=== PATIENT | female | born 1965 | race Caucasian/White ===

== ENCOUNTER 2017-12-01 14:18 | Observation (INO) | payer BC, OTHER ==
[2017-12-01] MEDS ORDERED: NS 1,000 ML IV ONE ×2 (14:49→16:47)
[2017-12-01] MEDS ORDERED: ONDANSETRON 4 MG/2 ML VIAL IVP ONE ×2 (14:49→19:00)
[2017-12-01 15:29] LABS: PLATELET COUNT 137 10^3/uL (150-400)
--- NOTE | 2017-12-01 15:34 | EDPHY ---
H & P Time Seen by Provider: 12/01/17 14:54 HPI/ROS: CHIEF COMPLAINT: Shakiness HISTORY OF PRESENT ILLNESS: Patient presents with shakiness and overall body tremor onset this morning. Started gradually just involving the upper extremities and then throughout the morning became worse. She did get an ultrasound today and after that ultrasound noticed shakiness to be more severe. She called her primary care physician who told her to go to an urgent care or emergency department. Patient with complex recent past medical history including"elevated erythrocytes"over the last 3-6 months. Also with elevated LFTs noticed on routine lab screening in July. Apparently she saw her primary care physician yesterday and was felt to have hepatomegaly and that, along with elevated LFT's, is what prompted the ultrasound today. In addition to these lab abnormalities she has been losing weight with a 20 lb weight loss over the last 3 months. She has had decreased appetite over the same period of time. Occasional nausea and vomiting but not persistent and not always associated with eating. Also she describes poor sleep and needing daytime naps. Also has"coated tongue" over same few months time. With this dizziness today she describes it as more like unsteadiness but does seem to be worse with change of positions. She also describes being thirsty and says that she needed help getting up as she felt"legs will not hold me". Patient denies chest pain, shortness of breath, cough, recent illnesses. No dysuria, diarrhea. No rash. No vision changes. No headache. She takes a natural thyroid replacement and says she has had no changes to that medication recently. Patient denies recent travel, toxic exposures, has a cat. REVIEW OF SYSTEMS: Constitutional: No fever, no chills. Eyes: No discharge. ENT: No sore throat. Cardiovascular: No chest pain, no palpitations. Respiratory: No cough, no shortness of breath. Gastrointestinal: No abdominal pain, some vomiting. Genitourinary: No dysuria. Musculoskeletal: No back pain. Skin: No rashes. Neurological: No headache. A no weakness, no numbness. General Appearance: Alert, no distress. Eyes: Pupils equal and round no pallor or injection. ENT, Mouth: Mucous membranes dry, coated tongue, poor dentition. Respiratory: There are no retractions, lungs are clear to auscultation. Cardiovascular: Regular rate and rhythm. Gastrointestinal: Abdomen is soft and nontender, no masses, bowel sounds normal. Neurological: Normal cranial nerves, normal strength, normal sensation, brisk reflexes but no clonus. All over tremor which is significant and it seems that patient unable to quench the affect even with effort. No tongue fasiculations. Skin: Warm and dry, no rashes. Musculoskeletal: Neck is supple nontender. Extremities are symmetrical, full range of motion, no edema. Thin with loss of muscle mass. Psychiatric: Patient is oriented X 3, there is no agitation. Medical/surgical history: Hypothyroid. Surgeries include appendectomy, ganglion cyst removal, liposuction. Social history: Patient is a smoker, born in [place] living in the [facility] since [facility]. Living in [place] over the last 9 years. 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 Occasional alcohol. Used to drink more but only occasional over the last 1 year. Smoking Status: Current every day smoker Constitutional: Initial Vital Signs Temperature (C) 36.9 C 12/01/17 14:23 Heart Rate 91 12/01/17 14:23 Respiratory Rate 18 12/01/17 14:23 Blood Pressure 159/101 H 12/01/17 14:23 O2 Sat (%) 85 L 12/01/17 14:23 O2 Delivery Mode Nasal Cannula O2 (L/minute) 4 Allergies/Adverse Reactions: Penicillins Allergy (Verified 12/01/17 14:29) Pt reports anaphylaxis Sulfa (Sulfonamide Antibiotics) Allergy (Verified 12/01/17 14:29) pt reports rash MONASTAT Allergy (Uncoded 12/01/17 14:29) Pt reports rash Home Medications: Medication Instructions Recorded Nature Thyroid 12/01/17 Medical Decision Making - Diagnostics Imaging Results: Imaging Impressions Head CT 12/01/17 15:23 Impression: 1. No acute intracranial findings. If symptoms persist and clinical suspicion warrants, consider MRI. 2. Mild diffuse cerebral atrophy. Findings discussed with Nadine Moscoso MD 12/01/2017 at 16:25. Chest X-Ray 12/01/17 15:25 Impression: Prominence of perihilar interstitial markings and peribronchial cuffing. Findings are nonspecific but can be seen with bronchitis, reactive airway disease, or viral process. Chest x-ray with no acute findings, likely some COPD. Imaging: I viewed and interpreted images myself ED Course/Re-evaluation: EKG shows normal sinus rhythm with some baseline artifact. Normal intervals, axis. T-wave inversions in anterior leads. No ST elevation or depression to suggest ischemia or infarct. Impression abnormal, nonspecific EKG. CT scan of head, volume loss, no acute. Discussed with radiologist. 16:55 I had conversation with Dr. Dave, patient's primary care physician. She was able to fax over ultrasound report as well as labs drawn yesterday. These will be sent with patient to [facility]. 17:[address] Melo for admission. DDimer added to labs. 18:00 D-dimer elevated, called , will order CT PE as well as CT abdomen and pelvis with IV and p.o. Contrast. Plan is to perform those studies here if patient has not gotten a bed at [facility]. If transferred to [facility] prior to CT scan it will be performed at [facility]. 7:[address] scan here, [facility] in the ED and will transport directly after CT scan. I will call CT results to hospitalist. Differential Diagnosis: Differential diagnosis includes but is not limited to hepatocellular carcinoma, essential tremor, hepatitis, COPD, pulmonary embolism, dehydration. After evaluation in the emergency department patient with liver masses identified on ultrasound performed at outside facility this morning. Transaminases continue to be elevated as well as hemoglobin and hematocrit. Today patient presents with hypoxia which is easily reversed with nasal cannula. Does have history of using albuterol although discontinued it recently. Will add D-dimer to evaluate for pulmonary embolism per Dr. Melo's request. Patient will be admitted to [facility] for further evaluation. Stable for transfer by ambulance. EMTALA form completed. - Data Points Laboratory Results: Laboratory Results 12/01/17 14:45 12/01/17 14:45 12/01/17 12/01/17 12/01/17 15:45 14:45 14:45 WBC RBC Hgb Hct MCV MCH MCHC RDW Plt Count MPV Neut % (Auto) Lymph % (Auto) [place] % (Auto) Eos % (Auto) Baso % (Auto) Nucleat RBC Rel Count Absolute Neuts (auto) Absolute Lymphs (auto) Absolute Monos (auto) Absolute Eos (auto) Absolute Basos (auto) Absolute Nucleated RBC Immature Gran % Immature Gran # D-Dimer 1.66 ug/mLFEU H ug/mLFEU (0.00-0.50) Sodium 139 mEq/L mEq/L (135-145) Potassium 3.6 mEq/L mEq/L (3.3-5.0) Chloride 96 mEq/L L mEq/L (97-110) Carbon Dioxide 26 mEq/l mEq/l (22-31) Anion Gap 17 mEq/L H mEq/L (8-16) BUN 9 mg/dL mg/dL (7-23) Creatinine 0.5 mg/dL L mg/dL (0.6-1.0) Estimated GFR > 60 Glucose 115 mg/dL H mg/dL (70-100) Calcium 10.0 mg/dL mg/dL (8.5-10.4) Magnesium 1.5 mg/dL L mg/dL (1.6-2.3) Total Bilirubin 1.4 mg/dL mg/dL (0.1-1.4) AST 417 IU/L H IU/L (14-46) ALT 143 IU/L H IU/L (9-52) Alkaline Phosphatase 214 IU/L H IU/L (38-126) Total Protein 7.4 g/dL g/dL (6.3-8.2) Albumin 4.0 g/dL g/dL (3.5-5.0) TSH 2.740 uIU/mL uIU/mL (0.465-4.680) Urine Color YELLOW Urine Appearance HAZY Urine pH 5.5 (5.0-7.5) Ur Specific Kelly >= 1.030 (1.002-1.030) Urine Protein 1+ H (NEGATIVE) Urine Ketones 1+ H (NEGATIVE) Urine Blood 1+ H (NEGATIVE) Urine Nitrate NEGATIVE (NEGATIVE) Urine Bilirubin NEGATIVE (NEGATIVE) Urine Urobilinogen 1.0 EU EU (0.2-1.0) Ur Leukocyte Esterase NEGATIVE (NEGATIVE) Urine RBC 1-3 /hpf /hpf (0-3) Urine WBC 1-3 /hpf /hpf (0-3) Ur Epithelial Cells 3+ /lpf H /lpf (NONE-1+) Urine Bacteria 1+ /hpf H /hpf (NONE SEEN) Urine Mucus 2+ /lpf H /lpf (NONE-1+) Urine Glucose NEGATIVE (NEGATIVE) 12/01/17 14:45 WBC 5.57 10^3/uL 10^3/uL (3.80-9.50) RBC 4.77 10^6/uL 10^6/uL (4.18-5.33) Hgb 17.0 g/dL H g/dL (12.6-16.3) Hct 48.1 % H % (38.0-47.0) MCV 100.8 fL H fL (81.5-99.8) MCH 35.6 pg H pg (27.9-34.1) MCHC 35.3 g/dL g/dL (32.4-36.7) RDW 12.2 % % (11.5-15.2) Plt Count 137 10^3/uL L 10^3/uL (150-400) MPV 10.1 fL fL (8.7-11.7) Neut % (Auto) 65.7 % % (39.3-74.2) Lymph % (Auto) 20.3 % % (15.0-45.0) [place]atham % (Auto) 11.3 % % (4.5-13.0) Eos % (Auto) 0.5 % L % (0.6-7.6) Baso % (Auto) 1.1 % % (0.3-1.7) Nucleat RBC Rel Count 0.0 % % (0.0-0.2) Absolute Neuts (auto) 3.66 10^3/uL 10^3/uL (1.70-6.50) Absolute Lymphs (auto) 1.13 10^3/uL 10^3/uL (1.00-3.00) Absolute Monos (auto) 0.63 10^3/uL 10^3/uL (0.30-0.80) Absolute Eos (auto) 0.03 10^3/uL 10^3/uL (0.03-0.40) Absolute Basos (auto) 0.06 10^3/uL 10^3/uL (0.02-0.10) Absolute Nucleated RBC 0.00 10^3/uL 10^3/uL (0-0.01) Immature Gran % 1.1 % % (0.0-1.1) Immature Gran # 0.06 10^3/uL 10^3/uL (0.00-0.10) D-Dimer Sodium Potassium Chloride Carbon Dioxide Anion Gap BUN Creatinine Estimated GFR Glucose Calcium Magnesium Total Bilirubin AST ALT Alkaline Phosphatase Total Protein Albumin TSH Urine Color Urine Appearance Urine pH Ur Specific Kelly Urine Protein Urine Ketones Urine Blood Urine Nitrate Urine Bilirubin Urine Urobilinogen Ur Leukocyte Esterase Urine RBC Urine WBC Ur Epithelial Cells Urine Bacteria Urine Mucus Urine Glucose Medications Given: Discontinued Medications Diatrizoate Meglum/Diatrizoate Sod (Gastroview 66-10 Soln) 30 ml PO EDNOW ONE Stop: 12/01/17 18:03 Last Admin: 12/01/17 18:05 Dose: 30 ml Sodium Chloride (Ns) 1,000 mls @ 0 mls/hr IV ONCE ONE PRN Reason: Wide Open Stop: 12/01/17 14:50 Last Admin: 12/01/17 14:52 Dose: 1,000 mls Sodium Chloride (Ns) 1,000 mls @ 0 mls/hr IV ONCE ONE PRN Reason: Wide Open Stop: 12/01/17 16:48 Last Admin: 12/01/17 16:30 Dose: 1,000 mls Ondansetron HCl (Zofran) 4 mg IVP EDNOW ONE Stop: 12/01/17 14:50 Last Admin: 12/01/17 14:52 Dose: 4 mg Ondansetron HCl (Zofran) 4 mg IVP ONCE ONE Stop: 12/01/17 19:01 Last Admin: 12/01/17 19:09 Dose: 4 mg Departure - Departure
[2017-12-01] MEDS ORDERED: GASTROVIEW 30 ML UNIT PO ONE (18:02)
[2017-12-01] MEDS ORDERED: IOPAMIDOL (ISOVUE 370) 100 ML BTL IV ONE (19:17)
[2017-12-01] MEDS ORDERED: PROTOCOL MAGNESIUM 1 DOSE IV PRN (21:25)
[2017-12-01] MEDS ORDERED: LORazepam 0.5 MG TAB PO PRN (21:32)
[2017-12-01] MEDS: AZITHROMYCIN 250 MG TAB PO SCH (21:59)
--- NOTE | 2017-12-01 22:26 | CPEKG ---
Heart Rate: 83 RR Interval: 723 P-R Interval: 160 QRSD Interval: 80 QT Interval: 420 QTC Interval: 494 P [place]: 82 QRS [place]: 52 T Wave [place]: -10 EKG Severity - ABNORMAL ECG - EKG Impression: SINUS RHYTHM EKG Impression: NONSPECIFIC T ABNORMALITIES, INFERIOR LEADS EKG Impression: BORDERLINE PROLONGED QT INTERVAL Electronically Signed By: Iván Sanders 04-Dec-2017 07:36:34
--- NOTE | 2017-12-01 22:54 | GHP ---
[f rep st] HISTORY AND PHYSICAL DATE OF ADMISSION: 12/01/2017 CHIEF COMPLAINT: Tremor. HISTORY: The patient is a 52-year-old female, who came to the emergency room today for overall sever e body tremor that started this morning, although she has been declining for quite some time with a s pectrum of symptoms. She recently was found to have increased LFTs as an outpatient, and her primary care order a liver ultrasound that was read as liver masses and so she was also sent to the emergenc y room for further evaluation of this. We since have a CT scan, that has just discovered that these masses are actually benign cavernous hemangiomas and there is no malignancy. She has had a 20 pound unintentional weight loss over the last 3 months, due to decreased appetite. She says her tongue is coated with a white substance and her dentist told her it looks like she has oral thrush, although sh e was not treated. She is very dizzy, unsteady and weak. She denies any shortness of breath or ches t pain. She has a chronic dry cough, but no fever. She does describe night sweats. Her sleep patte rn has completely changed and now she is awake all night and asleep all day. She has never had a col onoscopy. PAST MEDICAL HISTORY: 1. Hypothyroidism. 2. Chronic respiratory failure, 88% on room air, but she was told by a physician she did not need ho me oxygen. 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 PAST SURGICAL HISTORY: 1. Appendectomy. 2. Ganglion cyst. MEDICATIONS: Please see computer record for full detailed list. ALLERGIES: To penicillin and sulfa. SOCIAL HISTORY: She is a smoker for the last 30 years. She is from [place], but has been in the [facility] since 1988. She denies any TB exposure. Her and her do not have any children, but they have a cat. 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 Her alcohol intake is only occasional, 1-2 ti mes per month. REVIEW OF SYSTEMS: Complete review of systems obtained. Review of systems negative for constitution al, HEENT, GI, pulmonary, vascular, , hematology, skin, muscular, endocrine, psych. Positives as i n HPI. FAMILY HISTORY: Reviewed, noncontributory to presenting complaint. PHYSICAL EXAMINATION: GENERAL: Well-developed, well-nourished female, in no acute distress. She se ems distraught and tremulous, a little frazzled. VITAL SIGNS: Temperature is 36.6, pulse 76, blood pressure 153/89, saturating 85% on room air, 91% on 4 L. EYES: Normal conjunctiva. Pupils round an d react light. ENT: Normal ears and nose. Hearing intact. Normal teeth. Oropharynx does have a c oating of white on the tongue, suspicious for oral thrush. NECK: Trachea midline. No thyromegaly. CHEST: Normal respiratory effort. LUNGS: Bilateral rales with occasional wheeze. CARDIOVASCULAR: Regular rate and rhythm. No murmur. No lower extremity edema. ABDOMEN: Soft, nontender. I do n ot appreciate much hepatosplenomegaly at this time. SKIN: Warm, dry, intact. No rash. MUSCULOSKEL ETAL: No cyanosis or clubbing. Strength 5/5 upper and lower extremities. NEUROLOGIC: Cranial nerv es intact. Normal sensation to light touch. PSYCH: Alert and oriented x3. Normal mood and affect. Normal judgment and insight. Normal memory. LABORATORY DATA: White count 5.57, hematocrit 48.1, platelets 137, sodium 139, potassium 3.6, chlori de 96, bicarb 26, BUN 9, creatinine 0.5, glucose 115, magnesium is 1.5, AST 417, ALT is 143, TSH is 2 .7, D-dimer is 1.66. Chest x-ray consistent with bronchitis. Head CT is negative. CT scan of the abdomen and pelvis show s fatty liver. CT scan of the chest shows a viral versus atypical pneumonitis, with reactive mediast inal and hilar lymphadenopathy. On the abdominal CT she has benign cavernous hemangiomas. ASSESSMENT/PLAN: 1. Atypical pneumonia: A CT scan shows pneumonitis with reactive mediastinal and hilar lymphadenopa thy. Will check a respiratory PCR. Will start her empirically on azithromycin to cover atypical pat hogens. Her overall presentation, however, suggests there may be something larger going on here, beau ecially with her complaint of unintentional weight loss and night sweats. I will consult Infectious Disease to assist regarding any other workup for atypical type pneumonia and/or any other ideas regar ding other items which may be pursued including possible rheumatologic and/or other etiologies. We w ill check an ESR and CRP, and if these are very elevated would consider pursuing that more aggressive ly. 2. Oral thrush: Start nystatin and check a human immunodeficiency virus. 3. Increased liver function tests secondary to fatty liver disease: Although interestingly the danial ent is not obese. 4. Unintentional weight loss: I think it is related to the overall pattern we are seeing here, christina barrera, she has not had a colonoscopy so this should probably be done in addition to what is described a autumn. 5. Tobacco dependence: I do hear a little wheeze. Start her on nebulizers. 6. Tremor: She denies any alcohol use or drug use. This has been of relatively acute onset this mo rning. Could consider neurology consultation if it persists. CODE STATUS: Full. ADMISSION STATUS: Will admit to observation. Reevaluate tomorrow regarding ongoing need for hospita lization. DVT PROPHYLAXIS: She is moderate risk. Will place her on subcu Lovenox. /[id number]/MODL
[2017-12-01] MEDS: IPRATROPIUM/ALBUTEROL 3 ML DEYVIAL IH SCH (23:08)
[2017-12-02] MEDS ORDERED: oxyCODONE IR 5 MG TAB PO PRN (00:33)
[2017-12-02] MEDS: NYSTATIN SUSP 500000 UNIT/5 ML UDCUP PO SCH ×2 (04:53→11:27)
[2017-12-02] MEDS: IPRATROPIUM/ALBUTEROL 3 ML DEYVIAL IH SCH ×2 (05:12→10:59)
[2017-12-02 05:51] LABS: INR 1.03 (0.83-1.16); PROTIME(PATIENT) 13.7 SEC (12.0-15.0)
[2017-12-02 05:58] LABS: PLATELET COUNT 107 10^3/uL (150-400)
[2017-12-02 06:45] LABS: HEPATITIS B SURFACE ANTIGEN NEGATIVE (NEGATIVE)
[2017-12-02 06:51] LABS: HEPATITIS A ANTIBODY IGM (BCH) NEGATIVE (NEGATIVE); HEPATITIS B CORE AB IGM NEGATIVE (NEGATIVE)
[2017-12-02 07:02] LABS: HEPATITIS C ANTIBODY TOTAL NEGATIVE (NEGATIVE); HIV TYPE 1 AND 2 NEGATIVE (NEGATIVE)
[2017-12-02] MEDS ORDERED: ENOXAPARIN 40 MG/0.4 ML SYR SC SCH (09:00)
[2017-12-02] MEDS: AZITHROMYCIN 250 MG TAB PO SCH (09:02)
[2017-12-02] MEDS ORDERED: MAGNESIUM SULF 1 GM/DEXTROSE 100 ML IV ONE (09:20)
[2017-12-02 11:15] VITALS: BP 130/86
--- NOTE | 2017-12-02 12:01 | ASMTCMCOM ---
CM Note CM Note Notes: Reviewed chart and discussed w/RN. Anticipate dc home w/ when medically stable. PT/OT rec's pending but RN reports pt is up ambulating independantly. CM available if needs arise. Date Signed: 12/02/2017 12:00 PM Electronically Signed By:Christina Danielson RN
[2017-12-02] MEDS ORDERED: IPRATROPIUM/ALBUTEROL 3 ML DEYVIAL IH PRN (12:30)
--- NOTE | 2017-12-02 15:48 | GDS ---
[f rep st] DISCHARGE SUMMARY DISCHARGE DIAGNOSES: 1. Liver cavernous hemangiomas. 2. Anxiety. 3. Early-onset of emphysema. 4. Abnormal liver function tests. 5. Weight loss. 6. Tobacco dependency. 7. Tremor. CONSULTATIONS: Dr. Hillman of Infectious Disease. STUDIES AND PROCEDURES: 1. CT of the abdomen. 2. CT of the head. 3. CT angio of the chest done. PHYSICAL EXAM: GENERAL: The patient is alert. VITAL SIGNS: Afebrile at 36.9, pulse 86, respirator y rate 16. Blood pressure is 130/86. She is saturating greater than 90% on room air. I have seen a nd evaluated the patient on the day of discharge. HOSPITAL COURSE: The patient is a 52-year-old female who presented to the emergency room complaining of tremor. She was evaluated and diagnosed with: 1. Tremor related to anxiety. The patient's tremor has gone away independently. She has had this i n the past secondary to stressful events. She will follow with her primary care physician for furthe r treatment for underlying anxiety. 2. Pneumonitis per CT angio. It is likely representation of development of emphysema. The patient has been discontinued from antibiotic therapy and again will follow with her primary care physician. I have recommended she discontinue her smoking. She states that she will attempt this. 3. Tobacco dependency. Again, cessation has been recommended. 4. Abnormal liver function tests with cavernous hemangiomas. The patient likely has fatty liver. S he did have a history of alcohol use in the past and has been recommended that her primary care provi emma monitor her liver function enzymes in the outpatient setting with periodic repeat ultrasound to a ssure the patient's condition is not changing. The patient is in agreement with this plan. 5. Unintentional weight loss. It is recommended the patient have a colonoscopy in the [facility]. She has not had a colonoscopy, and she is due for one. DISPOSITION: The patient will be discharged home independently with her . I have discussed t he patient's disposition with Dr. Leonid Hillman of Infectious Disease. It is felt that the patient is safe to follow up with her primary care physician in the outpatient setting. It is my understanding that Dr. Hillman has spoken to the patient's primary care physician, Dr. Lyubov Roman, with recommenda tions being made. The patient is comfortable with this plan. /[id number]/MODL
[2017-12-03] MEDS ORDERED: NATURE THROID 32.5 MG PO SCH ×2 (06:00)
== END 2017-12-02 15:35 | disposition home or self-care (01) ==
LOC: CED 14:18 → INTOOBSV 17:21 → CEDHOLD 17:21 → F3E 20:20
PROVIDERS: ADMIT Internal Medicine; ATTEND Internal Medicine
DX: D18.03 Hemangioma of intra-abdominal structures (principal); R25.1 Tremor, unspecified; F41.8 Other specified anxiety disorders; K76.0 Fatty (change of) liver, not elsewhere classified; J43.9 Emphysema, unspecified; R94.5 Abnormal results of liver function studies; B37.0 Candidal stomatitis; R59.0 Localized enlarged lymph nodes; F17.210 Nicotine dependence, cigarettes, uncomplicated; R63.4 Abnormal weight loss; E03.9 Hypothyroidism, unspecified; Z88.0 Allergy status to penicillin; Z88.2 Allergy status to sulfonamides
CPT/HCPCS: 70450; 71046; 71275; 74177; 93005; 97161; G0378; 80053-PO; 81003-PO; 81015-PO; 82607-90; 83735-PO; 84443-PO; 85025-PO; 85378-PO; G0472; J1650; J2405; J3475; Q9967

== ENCOUNTER → 2018-07-06 | Outpatient (CLI) | payer OTHER ==
[~2018-07-06] MED LIST: LIDOCAINE 1% 300 MG/30 ML SDV ONE
== END ==
LOC: FIMAGING 07:12
PROVIDERS: ATTEND Internal Medicine Hematology & Oncology
PROC: 0W9G3ZX Drainage of Peritoneal Cavity, Percutaneous Approach, Diagnostic (ICD-10-PCS; principal; 2018-07-06)
DX: D75.1 Secondary polycythemia (principal)

== ENCOUNTER 2018-07-07 13:19 | Inpatient (IN) | payer OTHER ==
[2018-07-07] MEDS ORDERED: IPRATROPIUM/ALBUTEROL 3 ML DEYVIAL IH ONE (13:53)
--- NOTE | 2018-07-07 13:53 | EDPHY ---
H & P Stated Complaint: parecentesis T-1D +culture Time Seen by Provider: 07/07/18 13:30 HPI/ROS: CHIEF COMPLAINT: Spontaneous bacterial peritonitis HISTORY OF PRESENT ILLNESS: 52-year-old female presents with SBP, dx'd by paracentesis yesterday. 3 week history of abdominal distension, associated with generalized abdominal discomfort and lack of appetite. The abdominal discomfort is fairly constant and is mainly because of the abdominal distension. She was seen by Dr. Eric Evans in the office 2 days ago and had outpatient paracentesis, which demonstrated 4+ gram-negative rods. 30 lb weight loss in the past 3 months. Heavy smoker, chronically hypoxic, does not feel SOB now. Uses albuterol inhaler occasionally. No fever, vomiting or diarrhea. No prior history of ascites, liver failure or cancer. REVIEW OF SYSTEMS: complete 10 point ROS reviewed and is negative except for the noted elements in the HPI Source: Patient, Family - Personal History Current Tetanus/Diphtheria Vaccine: Yes Current Tetanus Diphtheria and Acellular Pertussis (TDAP): Yes Tetanus Vaccine Date: within 10 years - Medical/Surgical History Hx Asthma: No Hx Chronic Respiratory Disease: Yes Hx Diabetes: No Hx Cardiac Disease: No Hx Renal Disease: No Hx Cirrhosis: No Hx Alcoholism: No Hx HIV/AIDS: No Hx Splenectomy or Spleen Trauma: No Other PMH: Hypothyroidism, elevated liver enzyme, appendectomy, liposuction - Social History Smoking Status: Heavy smoker Alcohol Use: Rarely Drug Use: None Additional Social History: - Physical Exam Exam: General Appearance: Alert, pleasant Eyes: Pupils equal and round, no conjunctival pallor or injection ENT, Mouth: Mucous membranes moist Neck: Normal inspection Respiratory: Diffuse inspiratory wheezing Cardiovascular: Regular rate and rhythm Gastrointestinal: Abdomen is soft, mildly distended, right upper quadrant tenderness over the thoracentesis site Neurological: A&O, nonfocal, normal gait Skin: Warm and dry, no rash Extremities: 2+ pedal edema Psychiatric: Mood and affect normal Constitutional: Initial Vital Signs Temperature (C) 36.7 C 07/07/18 13:25 Heart Rate 112 H 07/07/18 13:25 Respiratory Rate 16 07/07/18 13:25 Blood Pressure 123/77 H 07/07/18 13:25 O2 Sat (%) 83 L 07/07/18 13:25 O2 Delivery Mode Room Air O2 (L/minute) 2 Allergies/Adverse Reactions: Penicillins Allergy (Verified 07/07/18 13:24) Pt reports anaphylaxis Sulfa (Sulfonamide Antibiotics) Allergy (Verified 07/07/18 13:24) pt reports rash MONASTAT Allergy (Uncoded 07/07/18 13:24) Pt reports rash Home Medications: Medication Instructions Recorded Nature-Throid 32.5 mg PO DAILY@06 12/01/17 Herbals/Supplements -Info Only 1 ea PO DAILY 07/07/18 Acetaminophen [Tylenol 325mg (*)] 650 mg PO Q4HRS PRN tab 07/09/18 Furosemide [Lasix 20 MG (*)] 20 mg PO BID #60 tab 07/09/18 Nicotine [Nicoderm Cq 21 mg (*)] 21 mg TD DAILY patch 07/09/18 Spironolactone [Aldactone] 50 mg PO DAILY #30 tab 07/09/18 Vancomycin [Vancocin Oral Liquid] 125 mg PO QID #48 udl 07/09/18 levOFLOXACIN [levAQUIN (*)] 750 mg PO DAILY AT 10AM #12 tab 07/09/18 metroNIDAZOLE [Flagyl 500 mg (*)] 500 mg PO Q8HRS #36 tab 07/09/18 Medical Decision Making - Diagnostics Imaging Results: CXR: ?LLL infiltrate ED Course/Re-evaluation: This pt presents with new onset ascites and SBP. She is well appearing and does not meets SIRS criteria. After blood cx's, Levaquin and Flagyl IV given. CXR reviewed, pt hypoxic but no URI sx/cough/SOB. Doubt pneumonia. Results d/ w pt. The hospitalist service was consulted for admission. Differential Diagnosis: includes though not limited to multiple causes of cirrhosis, including infectious, ETOH, meds, cryptogenic, hepatic cancer - Data Points Laboratory Results: Laboratory Results 07/07/18 13:45 07/07/18 13:45 Medications Given: Discontinued Medications Albuterol/Ipratropium (Duoneb) 3 ml IH EDNOW ONE Stop: 07/07/18 13:54 Last Admin: 07/07/18 14:25 Dose: 3 ml Furosemide (Lasix) 20 mg PO BID SIS Stop: 01/05/19 11:14 Last Admin: 07/09/18 12:05 Dose: 20 mg Furosemide (Lasix) 40 mg PO DAILY SIS Stop: 01/06/19 08:59 Last Admin: 07/10/18 08:53 Dose: 40 mg Levofloxacin/Dextrose (Levaquin 750 Mg (Premix)) 150 mls @ 100 mls/hr IV EDNOW ONE PRN Reason: Protocol Stop: 07/07/18 15:23 Last Admin: 07/07/18 16:06 Dose: 150 mls Metronidazole/Sodium Chloride (Flagyl 500 Mg (Premix)) 100 mls @ 100 mls/hr IV EDNOW ONE PRN Reason: Protocol Stop: 07/07/18 14:53 Last Admin: 07/07/18 14:24 Dose: 100 mls Levofloxacin/Dextrose (Levaquin 750 Mg (Premix)) 150 mls @ 100 mls/hr IV DAILY SIS PRN Reason: Protocol Stop: 08/07/18 08:59 Last Admin: 07/09/18 08:44 Dose: 150 mls Metronidazole/Sodium Chloride (Flagyl 500 Mg (Premix)) 100 mls @ 100 mls/hr IV Q8HRS SIS PRN Reason: Protocol Stop: 08/06/18 21:59 Last Admin: 07/09/18 05:43 Dose: 100 mls Levofloxacin (Levaquin) 500 mg PO DAILY AT 10AM SIS PRN Reason: Protocol Stop: 07/13/18 09:59 Last Admin: 07/10/18 10:18 Dose: 500 mg Metronidazole (Flagyl) 500 mg PO Q8HRS SIS PRN Reason: Protocol Stop: 08/08/18 13:59 Last Admin: 07/09/18 13:24 Dose: 500 mg Miscellaneous Medication (Nature-Throid) 32.5 mg PO DAILY@06 [facility] Stop: 01/04/19 05:59 Last Admin: 07/10/18 09:08 Dose: 32.5 mg Nicotine (Nicoderm Cq) 21 mg TD DAILY [facility] Stop: 01/04/19 10:44 Last Admin: 07/10/18 10:20 Dose: Not Given Potassium Chloride (Klor-Con) 40 meq PO DAILY [facility] Stop: 01/05/19 11:14 Last Admin: 07/09/18 12:12 Dose: 40 meq Potassium Chloride (Potassium Chloride Oral Liquid) 40 meq PO DAILY [facility] Stop: 01/06/19 08:59 Last Admin: 07/10/18 09:10 Dose: 40 meq Spironolactone (Aldactone) 50 mg PO DAILY [facility] Stop: 01/05/19 11:14 Last Admin: 07/09/18 12:06 Dose: 50 mg Spironolactone (Aldactone) 100 mg PO DAILY [facility] Stop: 01/05/19 11:14 Last Admin: 07/10/18 08:53 Dose: 100 mg Thiamine HCl (Vitamin B-1) 100 mg PO DAILY [facility] Stop: 01/06/19 08:59 Last Admin: 07/10/18 08:53 Dose: 100 mg Vancomycin HCl (Vancocin Oral Liquid) 125 mg PO QID [facility] PRN Reason: Protocol Stop: 08/07/18 15:59 Last Admin: 07/10/18 16:19 Dose: 125 mg Departure - Departure Disposition: [facility] Inpatient Acute Clinical Impression: Spontaneous bacterial peritonitis Condition: Serious
[2018-07-07 14:03] LABS: PLATELET COUNT 226 10^3/uL (150-400)
[2018-07-07] MEDS ORDERED: ONDANSETRON DISINTEGRATING 4 MG TAB PO PRN (14:24)
[2018-07-07] MEDS ORDERED: ONDANSETRON 4 MG/2 ML VIAL IVP PRN (14:24)
[2018-07-07] MEDS ORDERED: ACETAMINOPHEN 325 MG TAB PO PRN (14:24)
[2018-07-07] MEDS ORDERED: NS 1,000 ML IV SCH (14:30)
[2018-07-07 14:47] LABS: PROTIME(PATIENT) 13.4 SEC (12.0-15.0)
[2018-07-07] MEDS ORDERED: IOPAMIDOL (ISOVUE-300) 100 ML BTL ONE (14:48)
[2018-07-07] MEDS ORDERED: IPRATROPIUM/ALBUTEROL 3 ML DEYVIAL IH PRN (14:56)
--- NOTE | 2018-07-07 15:36 | GHP ---
DATE OF ADMISSION: 07/07/2018 HISTORY OF PRESENT ILLNESS: The patient is a 52-year-old female with a history of liver disease, who presented to the ER following positive cultures on ascitic fluid. She has a history of abnormal LFTs diagnosed secondary to hepatic steatosis. She presented to Dr. Christian Evans's office a couple of days ago with claims of having hemochromatosis, this being done on the b asis of positivity for a single copy of H63D, which is consistent with a carrier for hemochromatosis. She has an elevated ferritin. She is relatively a nondrinker. Over the last couple days, her abdomen has grown in increased girth. She has not had fever or chills . She has not had confusion. She has not had falls. She has not had melena, bright red blood per r ectum, hematemesis, or coffee-grounds emesis. She does not have a family history of liver disease. Her father had sudden cardiac , which can be associated with hemochromatosis. She underwent a paracentesis yesterday that was unremarkable and had a relatively low amount of neutr ophils, but the Gram stain had 4+ gram-negative rods, and she is referred here. When I see the patient in the emergency department, she is alert and feeling well, without specific c omplaints. Her notes that her abdominal girth increased somewhat rapidly over a period of ti me. Notably, she also has a history of hepatic hemangiomas diagnosed on CT scan of the abdomen at this [facility] in November of this year. REVIEW OF SYSTEMS: Complete 10-point review of systems was conducted and negative, except as noted i n the HPI. PAST MEDICAL HISTORY: Hypothyroidism. ALLERGIES: Penicillins, to which apparently she has anaphylaxis, as well as sulfa and possibly Monis tat. SOCIAL HISTORY: She does smoke cigarettes. She is from [email or web address]. She works in [employer]. Lives in [place]. FAMILY HISTORY: As in the HPI. HOME MEDICATIONS: Nature Thyroid. PHYSICAL EXAMINATION: VITAL SIGNS: Temp 36.7, blood pressure 123/77, pulse 112, breathing 16 times a minute, 83% on room air, 93% on 2 L. General: No acute distress. HEENT: Sclerae anicteric. Eric pharynx clear. Mucous membranes are moist. NECK: Supple, without lymphadenopathy or JVD. LUNGS: Clear to auscultation bilaterally. HEART: S1, S2. Not tachycardic when I see her. ABDOMEN: Soft. It is distended, consistent with a fluid wave. There is no rebound or guarding. EXTREMITIES: Low er extremity edema is 1+ bilaterally. Calves are nontender. SKIN: Without rash. NEUROLOGIC: Exam is nonfocal. LABS: White count 13, hematocrit 48. Platelets are 226,000. INR is normal. Venous lactate is 2.1, which is normal value. Sodium 132, potassium 4.2, chloride 96, bicarb 25, BUN 9, creatinine 0.5. B ilirubin is 2.6, AST 283. ALT is 89. These are consistent with what her LFTs have been like for a pe riod of time. Alkaline phosphatase is elevated at 582. Total protein is 6.2, albumin 3.5, lipase 22 1. Peritoneal fluid from yesterday shows 307 white cells, 400 red cells. There are only 4% neutroph ils. She has a history of negative hepatitis and HIV serologies in November of this year. It is important to n ote that her liver pathology began prior to that. Her JAK2 V617 mutation is negative. I have discussed the case with Dr. Pricilla Hunt. ASSESSMENT AND PLAN: A 52-year-old female with liver disease as yet undiagnosed, as well as spontane ous bacterial peritonitis. 1. Spontaneous bacterial peritonitis. The patient is not encephalopathic. I will start her on levo floxacin and metronidazole given her penicillin allergy. 2. Liver disease. She is a carrier for hemochromatosis, which does not necessarily diagnosis her wi th this illness. She needs a liver biopsy. I will have GI see her. She probably needs screening en doscopy. I will also order a ceruloplasmin and follow up ferritin. Notably, her outpatient LFTs hav e shown a chronically elevated AST, ALT in about a 2:1 ratio. She has a history of H63D positivity f or carrier, but the C282Y/S65 were negative. Her ferritin typically runs in the low thousands. Perf orm an abdomen ultrasound with Dopplers to evaluate for portal vein thrombosis given the rapid accumu lation of ascites. I will hold on diuretics. 3. Hypoxia. The patient has a longstanding smoking history and poor breathing mechanics with new as cites. Will follow. Supplemental oxygen as needed. Will write her for some DuoNeb p.r.n. 4. Elevated ferritin. This is indicative of liver disease, but not necessarily consistent with hemo chromatosis. 5. Prophylaxis. Low molecular weight heparin indicated. However, she represents a bleeding risk an d may need a liver biopsy, so will hold. Will provide SCDs. 6. Disposition: Inpatient status. /[id number]/MODL
--- NOTE | 2018-07-07 16:02 | PDMN ---
Medical Necessity Medical necessity: Pt meets inpt criteria per MD order and [facility] [id number], Liver Disease Complications, A-2 days. 52 y/o w/hx of liver disease admitted w/ spontaneous bacterial peritonitis, paracentesis for abd ascites w/4+ gram- negative rods on ascetic fluid. GI consult pending. Anticipate>2MN for ongoing eval/treatment of above.
--- NOTE | 2018-07-07 16:08 | ASMTCMCOM ---
CM Note CM Note Notes: 07/07/2018 Case Management Note Reviewed chart. Pt admitted with history of liver disease with positive ascites fluid cultures. There are no case management d/c needs identified at this time d/t pt age, marital status, employment status and independence with ADL's prior to admission. There are no therapy evals ordered at this time. Case Management d/c poc: anticipating independent with follow up as directed. Case Management available if needs change. Date Signed: 07/07/2018 04:08 PM Electronically Signed By:Maddy Martin RN
[2018-07-08 05:21] LABS: PLATELET COUNT 165 10^3/uL (150-400)
[2018-07-08] MEDS: NATURE THROID 32.5 MG PO SCH (05:44)
[2018-07-08] MEDS ORDERED: Herbals/Supplements -Info Only PO SCH (09:00)
--- NOTE | 2018-07-08 10:51 | HOSPPROG ---
Hospitalist Progress Note Assessment/Plan: 52 yo F w newly discovered cirrhosis admitted w SBP SBP: e coli on gm stain cx neg thus far anaphylaxis to pcn LQ/flagyl day 2 cirrhosis: cause uncertain not hemachromatosis, although she is gene carrier very anxious this AM, raising concern for alcoholism although she denies and is not tachycardic ultimately needs liver biopsy, active sbp precludes outpt hep seroloies neg GI eval today ascites: repeat paracentesis today ultimately needs diuretics consider starting 07/09 if improving hyponatremia: mild, follow liver hemangiomata: not clear these are contributing to current process proph: scd's tachycardia: resolved Subjective: case discussed at length w dr fernández. diarhea overnight. wants to go home today Objective: Vital Signs Temp Pulse Resp BP Pulse Ox 36.7 C 74 16 123/64 H 95 07/08/18 07:30 07/08/18 07:30 07/08/18 07:30 07/08/18 07:30 07/08/18 07:30 Laboratory Results 07/08/18 04:24 07/08/18 04:24 PT 13.4 SEC (12.0-15.0) 07/07/18 13:45 INR 1.00 (0.83-1.16) 07/07/18 13:45 - Physical Exam Constitutional: other (tremulous) Eyes: PERRL, anicteric sclera Ears, Nose, Mouth, Throat: moist mucous membranes, hearing normal Cardiovascular: regular rate and rhythym, no murmur, rub, or gallop, No tachycardia Respiratory: no respiratory distress, no rales or rhonchi Gastrointestinal: ascites, distension, No guarding, No rebound Genitourinary: no bladder fullness, No stevens in urethra Skin: warm, normal color Musculoskeletal: No full muscle strength Neurologic: AAOx3 Psychiatric: interacting appropriately, No not anxious Lymph, Heme, Immunologic: no cervical LAD
[2018-07-08] MEDS: NICOTINE 21 MG/24 HR PATCH TD SCH (11:04)
[2018-07-08] MEDS ORDERED: LIDOCAINE 1% 300 MG/30 ML SDV ONE (13:43)
[2018-07-08] MEDS: VANCOMYCIN 125 MG/2.5 ML UDL PO SCH ×2 (15:41→22:20)
--- NOTE | 2018-07-08 19:06 | GCON ---
REFERRING PHYSICIAN: Moreno Joseph MD REASON FOR CONSULTATION: This is for ascites. Dear Dr. Joseph: Thank you very kindly for asking me to evaluate Ms. Guy in consultation for a chief complaint of n ew-onset ascites. She describes that she was discovered to have a fatty liver with an elevated justyna tin about 2 months ago. This was associated with abnormal liver enzymes. There was also what sounds like a high serum ferritin. She was seen by Hematology with Dr. Eric Evans and underwent an eval uation for these problems. She says no clear conclusion was found. It sounds like she had testing f or hereditary hemochromatosis and was found to be a carrier of the H63D mutation. She does have a hi story of alcohol use remotely, but there is no clear history of alcoholism. She was found to have as cites on this admission which is the principal reason she came to the hospital due to increasing abdo faye girth. Paracentesis performed on July 06 revealed 4+ white cells and 4+ gram-negative ro ds but had no growth. She was admitted for further evaluation and management of was felt to be spont aneous bacterial peritonitis. She has been on antibiotics and improving. A repeat paracentesis perf ormed today revealed 2+ white cells but no organisms seen. This is suggesting improvement. Imaging included an abdominal ultrasound on July 07, 2018, with Doppler studies that showed a mil d hepatomegaly with diffuse steatosis. There was some heterogeneity to the left hepatic lobe and rig ht hepatic lobe consistent with likely hemangioma. There was a small volume of perihepatic and peris plenic ascites. There was normal flow to the portal and hepatic veins. A CT scan of the abdomen and pelvis on July 07, 2018, showed a 6.7 x 4.6 cm lesion in the right hepatic lobe that is most com patible with an angioma based on its arterial filling. There is also a 3.3 x 2.5 cm lesion in the le ft hepatic lobe, which is also consistent with an angioma. The hepatic contour is nodular. The sple en, pancreas, and gallbladder are normal. There is ascites noted. I am asked to assist with further evaluation and management of her ascites, SBP, and new diagnosis of cirrhosis. Incidentally, she wa s also found to have Clostridium difficile-positive stool PCR on this admission. PAST MEDICAL HISTORY: Significant for hypothyroidism. PAST SURGICAL HISTORY: Negative. MEDICATIONS ON ADMISSION: Natural thyroid supplement. She does not take any herbal medications. FAMILY HISTORY: Negative for liver disease. SOCIAL HISTORY: Tobacco use. 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 She is living in [place]. She is . There is some mention of alcohol use in her admission note as well as per nursing reports, but it is unclear as to how much and Deepti denies any active alcohol. No history of subs tance abuse. REVIEW OF SYSTEMS: GENERAL: She has been somewhat weak and tired. HEENT: No headache. No notable scleral icterus. No difficulty swallowing. PULMONARY: No cough or shortness of breath. CARDIOVASCULAR: No chest pain or palpitations. GI: Notable for increasing a bdominal girth without pain. She has also had some diarrhea which turned out to be related to Clostr idium difficile positivity. MUSCULOSKELETAL: Denies myalgias or joint pain. DERMATOLOGIC: She has not noted jaundice or rash. HEMATOLOGIC: No bruising or epistaxis. NEURO: No paresthesias, weakn ess, but she does notice a tremor that has been more prevalent of recent. PSYCHIATRIC: She feels an xious. GENITOURINARY: No flank pain or hematuria. No tea-colored urine. PHYSICAL EXAM: VITAL SIGNS: Blood pressure 135/83, pulse is 90, oxygenation is 92% on 2 L nasal can nula with temperature 36.5. GENERAL: Somewhat anxious-appearing female in no acute distress. HEENT : Normocephalic, atraumatic. Neck is supple. Mucous membranes are moist. The tongue does have a m ild white plaque on it. There is possibly slight scleral icterus. No spider angiomata. PULMONARY: Clear to auscultation bilaterally. CARDIOVASCULAR: Regular rate and rhythm without murmur, rub, or gallop. GI: The liver is palpable. Spleen is not. There is ascites, but the abdomen is soft. No tenderness, rebound, or guarding. SKIN: Mildly jaundiced. There is some palmar erythema, a few sp ider angiomata on the chest. EXTREMITIES: Without edema. Joints are without deformity, swelling, o r warmth. NEUROLOGIC: Alert to person, place, and time. There is a resting tremor. No asterixis. Cognitively, the patient seems appropriate. Speech is normal. Motor nonfocal. Gait not ataxic. DATABASE: Includes the following: White blood count is 9.8, hematocrit 46.1, MCV 100.7, platelets 1 65. INR is 1.0 with a PT of 13.4. Sodium 133, potassium 3.8, chloride 96, bicarbonate 26, BUN 9, cr eatinine 0.5, glucose 74, AST is 209, ALT is 75, alkaline phosphatase is 520, total bilirubin is 2.4 with a conjugate of 1.6, albumin 3.0 with a total protein of 5.4. Clostridium difficile toxin PCR is positive from the stool today. Paracentesis fluid on 07/08/2018 shows 2+ white cells with a negativ e Gram stain otherwise for organisms. The white count is 714 with a red blood cell count of 4,679. Previous paracentesis performed on July 06, 2018, shows a Gram stain of 4+ white cells, 4+ gram-n egative rods. Growth is negative at 48 hours. Mycobacterial smear on the peritoneal fluid from [facility] is negative for acid-fast bacilli. Blood cultures are drawn and pending. Imaging includes an abdominal ultrasound and CT scan as per HPI. Serologies in November of 2017 were negative for hepatitis A IgM negative. Hepatitis B surface antigen ne gative. Hepatitis B core IgM negative. Hepatitis C antibody negative. HIV 1 and 2 Negative. A TSH was 3.7 on December 02. Alpha fetoprotein was 2.18 on July 04. Ceruloplasmin is pending. C-re active protein is elevated at 14.6. IMPRESSION: 1. New-onset ascites. 2. Spontaneous bacterial peritonitis with gram-negative rods, on antibiotic therapy with convalescen t paracentesis showing improvement. 3. Likely cirrhosis, causality unknown. 4. Resting tremor. 5. Elevated liver enzymes. 6. Clostridium difficile positivity representing Clostridium difficile colitis. RECOMMENDATIONS: 1. Would benefit from Lasix 20 mg b.i.d. and spironolactone 50 mg daily to help manage ascites. 2. I do not believe she needs a further paracentesis but would just complete a 90-nk-92-day treatmen t course with levofloxacin and Flagyl. I would probably favor a 14-day treatment course due to the 4 + positive gram-negative rods. 3. Flagyl will also help cover her Clostridium difficile colitis, but there is a high resistance to Flagyl and would consider use of vancomycin preferably. Dificid (fidaxomicin) 200 mg p.o. twice alonso y for 10 days would also be preferable to either of these antibiotics given her cirrhosis and risk of recurrence. 4. In regard to the cause of her cirrhosis, this is unknown. She did seem to have an elevated outpa tient serum ferritin and an imaging suggesting fatty liver. There is possible remote alcohol history but not very convincing. Her initial virus serologies are negative. 5. Additional workup will include AMA, anti-smooth muscle antibody, antinuclear antibody, alpha 1-an titrypsin phenotype and level, anti-liver kidney microsomal antibody, serum protein electrophoresis, celiac panel. 6. I would not perform a liver biopsy at this time given her infection, but this will be likely nece ssary as an outpatient to exclude iron overload. 7. Her ultrasound with Doppler, I believe, has excluded Budd-Chiari as a cause of cirrhosis and asci mariano, and I think should be adequate for this regard. 8. Thank you very kindly for allowing me to be involved in the care for Mrs. Guy. We will await the additional serologic workup, plan for an outpatient liver biopsy when her infection is cleared, a nd work on managing her Clostridium difficile colitis and SBP. 9. Please call with any urgent questions. /[id number]/MODL
[2018-07-09] MEDS: NATURE THROID 32.5 MG PO SCH (05:41)
[2018-07-09] MEDS: VANCOMYCIN 125 MG/2.5 ML UDL PO SCH ×4 (05:42→21:50)
[2018-07-09 05:47] LABS: PLATELET COUNT 175 10^3/uL (150-400)
[2018-07-09] MEDS: NICOTINE 21 MG/24 HR PATCH TD SCH (08:41)
[2018-07-09] MEDS ORDERED: FUROSEMIDE 20 MG TAB PO SCH (11:15)
[2018-07-09] MEDS ORDERED: SPIRONOLACTONE 50 MG TAB PO SCH ×2 (11:15→14:27)
[2018-07-09] MEDS ORDERED: POTASSIUM CL 10 MEQ TAB PO SCH (11:15)
--- NOTE | 2018-07-09 13:00 | ASMTLACE ---
LACE Length of stay for Answers: 2 days current admission Acuity / Level of Answers: Yes Care: Did the patient have an inpatient admission? Comorbidities - select Answers: Mild liver or renal all that apply disease Other Notes: hypothyroidism, current smoker, # of Emergency department Answers: 1-2 visits in the last 6 months Score: 9 Date Signed: 07/09/2018 12:59 PM Electronically Signed By:Ara Durbin
--- NOTE | 2018-07-09 13:03 | ASDISCHSUM ---
Discharge Information Plan Status:Home with No Needs Medically Cleared to Leave:07/08/2018 Discharge Date:07/08/2018 CM D/C Disposition:Home, Routine, Self-Care ADT D/C Disposition:Home, Routine, Self-Care Projected Discharge Date:07/08/2018 Transportation at D/C:Family Discharge Delay Reason: Follow-Up Date:07/08/2018 Discharge Slot: Final Diagnosis:liver disease, ascites Placement Information Patient Contact Information Contact Name:KATHIE Relationship: Address:[address] [facility] Work Phone: City:[facility] Phone: [facility]/Zip Code:[place] [address] Email: Financial Information Financial Class:HMO and PPO Plans Primary Plan Desc:[facility] Primary Plan Number:[id number] Secondary Plan Desc: Secondary Plan Number: Assessment Information [facility] CM Progress Note CM Note CM Note Notes: 07/07/2018 Case Management Note Reviewed chart. Pt admitted with history of liver disease with positive ascites fluid cultures. There are no case management d/c needs identified at this time d/t pt age, marital status, employment status and independence with ADL's prior to admission. There are no therapy evals ordered at this time. Case Management d/c poc: anticipating independent with follow up as directed. Case Management available if needs change. Date Signed: 07/07/2018 04:08 PM Electronically Signed By:Maddy Martin RN LACE LACE Length of stay for Answers: 2 days current admission Acuity / Level of Answers: Yes Care: Did the patient have an inpatient admission? Comorbidities - select Answers: Mild liver or renal all that apply disease Other Notes: hypothyroidism, current smoker, # of Emergency department Answers: 1-2 visits in the last 6 months Score: 9 Date Signed: 07/09/2018 12:59 PM Electronically Signed By:Ara Durbin Case Management Discharge Plan Note Case Management Discharge Discharge Order Complete? Answers: Yes Patient to Obtain Answers: via Family Medications Transportation Arranged Answers: Family/Friends Transport will Pick (Date 07/09/2018 12:00 AM & Time) Family Notified Answers: Yes Notes: by pt. Discharge Comments Notes: Spoke with pt briefly in the room and with pt's RN. Pt to discharge independently with support from . Pt "very happy to be leaving." No CM needs identified at this time. Date Signed: 07/09/2018 01:01 PM Electronically Signed By:Ara Durbin Intervention Information
[2018-07-09] MEDS ORDERED: metroNIDAZOLE 500 MG TAB PO SCH (14:00)
--- NOTE | 2018-07-09 14:29 | SOAPPROG ---
SOAP Progress Note Assessment/Plan: Assessment/Plan: 1. Ascites. Most likely portal hypertensive, especially with abnormal LFTs. - change lasix to all at once - increase aldactone to 100 - once K normal, would d/c routine KCL - change to low sodium diet 2. Probable cirrhosis. With elevated alk phos, suspect PBC vs PSC. Past EtOH use possible. - serologic work-up pending - as an outpt, she might eventually require liver bx, possible MRCP 3. ? ever had SBP. 07/06 gram stain with g - r, but PMNs less than 250. Repeat tap with negative gram stain, and again low PMNs. - levaquin, at a lower dose, x 3 more days, then stop. - doesn't need flagyl I will sign off. I'll arrange outpt hepatology f/u with our group, f/u on pending work-up, as well as repeat BMP in two weeks, with diuretics. Else, please call if we can be of further help [phone]). Thanks! 07/09/18 14:38 Subjective: cc: ascites Had sz today; being evaluated. No further diarrhea. Denies significant abdominal pain, distension. No fever, rigors. Objective: Vital Signs Temp Pulse Resp BP Pulse Ox 36.4 C 88 18 114/81 H 95 07/09/18 13:59 07/09/18 13:59 07/09/18 13:59 07/09/18 13:59 07/09/18 13:59 Microbiology 07/08/18 15:30 Gram Stain - Final Peritoneal Fluid - Aspirate Laboratory Results 07/09/18 04:20 07/09/18 04:20 07/08/18 07/09/18 07/10/18 05:59 05:59 05:59 Intake Total 501 Output Total 4 Balance 497 PT 13.4 SEC (12.0-15.0) 07/07/18 13:45 INR 1.00 (0.83-1.16) 07/07/18 13:45 AST 217/ALT 85, with alk phos 540. [id number], ceruloplasmin IBIS, liver/kidney microsomal, AMA pending. Physical Exam - Physical Exam General Appearance: WD/WN, alert, no apparent distress EENT: PERRL/EOMI, normal ENT inspection, pharynx normal, TMs normal Neck: non-tender, full range of motion, supple, normal inspection Respiratory: chest non-tender, lungs clear, normal breath sounds Cardiac/Chest: normal peripheral pulses, regular rate, rhythm Peripheral Pulses: 2+: carotid (R), carotid (L), femoral (R), femoral (L), dorsalis-pedis (R), dorsalis-pedis (L) Abdomen: normal bowel sounds, non-tender, ascites Pelvic Exam: deferred Rectal: deferred Back: Normal inspection Skin: normal color, warm/dry Lymphatic: no adenopathy Extremities: normal range of motion, non-tender, normal inspection, normal capillary refill Neuro/Psych: no motor/sensory deficits, alert, normal mood/affect, oriented x 3 ICD10 Worksheet Patient Problems: Problems Problem Status Onset Ascites Acute
[2018-07-09] MEDS ORDERED: GADOBUTROL 10 ML VIAL IVP ONE (15:08)
[2018-07-09] MEDS ORDERED: LORazepam 2 MG/ML INJ IVP PRN (17:17)
--- NOTE | 2018-07-09 17:17 | HOSPPROG ---
Hospitalist Progress Note Assessment/Plan: Subjective Follow-up on suspected spontaneous bacterial peritonitis and C diff. Patient was progressing well when seen this morning and requesting for discharge home. We discussed it could burning her antibiotics to oral antibiotics as well as initiating diuretics as recommended by Gastroenterology. Discharge orders had been put into the computer and arrangements were being made to leave the hospital when her called for help and she was observed having tonic- clonic seizure activity. Stat team was called. I was near the room and was able to directly observe the seizure itself. Her breathing at 1 point seemed to stop and we had difficulty palpating a pulse so I started CPR and delivered approximately 4-5 chest compressions. At that time I stopped and reassess doing definitely felt good pulses in her breathing started to potato picker and gradually she regained consciousness and was verbal and was able to the talk with her in [place]. Objective Vitals as detailed below. Exam General-awake alert conversant no acute distress Heart-regular rate and rhythm no murmurs Lungs-Clear to auscultation with normal respiratory effort Abdomen-mildly distended but soft, nontender with palpation -no Smalls catheter in place Extremities-no significant pitting edema or calf pain with palpation Skin-no concerning skin rashes noted Labs as detailed below Assessment and plan Seizure-new onset. No prior history. I did talk with her about any use of alcohol as she has been here approximately 48 hr and her confirms that she does not drink alcohol on a regular basis. He states that she has had 1 glass of wine this entire year. It sounds like she may have had more frequent use of alcohol in the distant past several years ago. MRI of the brain with without contrast has been ordered. Neurology consult request has been placed as well. Considering this was 1 seizure I will hold off on initiating antiseizure medications but I will place an order for Ativan as needed for any seizure activity. Spontaneous bacterial peritonitis-suspected. Continuing treatment with Levaquin. C difficile colitis-diarrhea has improved. Continuing vancomycin. Cirrhosis-unclear etiology and outpatient workup ongoing. She has had multiple labs sent during this hospitalization and will plan on outpatient follow-up. Ascites-spironolactone and Lasix has been started. Hyponatremia-mild at 1:33 a.m.. Continue to trend. Hypokalemia-potassium supplementation has been started. Monitor closely is also on spironolactone. Hypothyroidism-continue current thyroid supplementation. DVT prophylaxis-SCDs. Disposition-seizure workup needed prior to discharge at this time. Objective: Vital Signs Temp Pulse Resp BP Pulse Ox 36.9 C 83 16 114/79 98 07/09/18 16:00 07/09/18 16:00 07/09/18 16:00 07/09/18 16:00 07/09/18 16:00 Microbiology 07/08/18 15:30 Gram Stain - Final Peritoneal Fluid - Aspirate Laboratory Results 07/09/18 04:20 07/09/18 04:20 07/08/18 07/09/18 07/10/18 05:59 05:59 05:59 Intake Total 501 Output Total 4 Balance 497 PT 13.4 SEC (12.0-15.0) 07/07/18 13:45 INR 1.00 (0.83-1.16) 07/07/18 13:45 ICD10 Worksheet Patient Problems: Problems Problem Status Onset Ascites Acute
[2018-07-10] MEDS: VANCOMYCIN 125 MG/2.5 ML UDL PO SCH ×3 (05:21→16:19)
[2018-07-10] MEDS ORDERED: POTASSIUM CL 20 MEQ/15 ML UDCUP PO SCH (09:00)
[2018-07-10] MEDS ORDERED: FUROSEMIDE 40 MG TAB PO SCH (09:00)
[2018-07-10] MEDS ORDERED: THIAMINE HCL 100 MG TAB PO SCH (09:00)
[2018-07-10] MEDS: NATURE THROID 32.5 MG PO SCH (09:08)
[2018-07-10] MEDS: NICOTINE 21 MG/24 HR PATCH TD SCH (10:20)
--- NOTE | 2018-07-10 14:26 | ASMTCMCOM ---
CM Note CM Note Notes: Patient was not discharged yesterday as planned due to new onset seizure when she was preparing to leave. Trauma team was called and received neuro consult. Patient is eager to go & received discharge orders today, plan continues to be discharge home independently with family support. CM available to support if any additional CM needs arise. Date Signed: 07/10/2018 02:26 PM Electronically Signed By:Herminia Mederos
[2018-07-10 15:40] VITALS: BP 114/96
--- NOTE | 2018-07-10 15:57 | GDS ---
DISCHARGE DIAGNOSES: Seizure, new onset suspected spontaneous bacterial peritonitis, Clostridium dif ficile colitis, ascites. HISTORY OF PRESENT ILLNESS: The patient is a pleasant 52-year-old female with a past medical history of liver cirrhosis of uncertain etiology who had had a recent paracentesis which showed 4+ gram-nega tive rods and was referred to the [facility] for further evaluation an d treatment. She was admitted and started on antibiotic therapy for SBP. She was having diarrhea, s o a PCR panel was sent, and this was positive for C difficile, and she was started on vancomycin ther apy. GI consulted on her case during this hospitalization and her diarrhea did improve with treatmen t for C difficile. Preparations were made on 07/09/2018, to discharge with the plan for short-term f ollowup with her primary provider as well as with Dr. Hawkins, hepatology, when she had a tonic-cloni c seizure. The seizure lasted approximately 1-2 minutes and self-resolved. She had an MRI of her br ain for further investigation. This did not show any obvious etiology of her seizure. Mild cerebral atrophy was noted along with moderate white matter plaques in the periventricular and subcortical wh ite matter of the frontal and parietal lobes. Neurology was consulted and no recommendations to star t any antiseizure medications at this time. The patient was cleared for discharge by Neurology with a plan for outpatient followup. The patient will also be having followup with Hepatology for further evaluation of her cirrhosis. Bl ood evaluation was obtained and sent off during this hospitalization. Many of the results are still currently pending. HOSPITAL COURSE BY PROBLEM: Seizure: New onset. Uncertain etiology. We did look at the possibilit y of metronidazole as precipitating the seizure as it is listed as a potential side effect, but I thi nk it is unusual. It was not recommended to continue with Flagyl anyway, so this has been stopped. Outpatient followup recommended to consider EEG. Spontaneous bacterial peritonitis: Suspected. It is recommended to continue 2 additional days of Le vaquin at 500 mg daily after hospital discharge. C difficile colitis: Possible. PCR was positive and she presented with diarrhea. Clinically, she i s improving with vancomycin. A prescription has been provided to complete a 14-day course of treatme nt. Ascites: The patient was started on spironolactone and Lasix during this hospitalization. I have pr ovided 2-week supply of this medication and advised her that I want her to see her primary provider valdo argueta 2 weeks to have a basic metabolic panel checked to look at her kidney function and potassium wi th this diuretic regimen in place. Hyponatremia: Mild at 134 today. Hypokalemia: 3.3 today. Considering we are adding and increasing the dose of spironolactone, I darren mmend that we not continue with any potassium supplementation until she can have electrolytes recheck ed in the coming 1-2 weeks. Cirrhosis: Uncertain etiology. She is a carrier of hemochromatosis gene. I think cirrhosis seconda ry to this would be unusual. She has upcoming consultation with Hepatology to review workup that was started here in the hospital. Hypothyroidism: She was continued on thyroid supplementation. DVT prophylaxis: Low risk. Patient was mobile during this hospitalization. DISPOSITION: Patient appears stable for discharge to home today. DISCHARGE PHYSICAL EXAMINATION: VITAL SIGNS: Temperature 36.4, blood pressure 111/77, heart rate 96 , respirations 16, sating 99% on room air. GENERAL: Patient appears comfortable. She is ambulating in the garcia in her room in no acute distress. HEART: Regular. No murmurs. LUNGS: Clear to auscu ltation. Normal respiratory effort. ABDOMEN: Mildly distended. Soft, no significant tenderness wi th palpation. : No Smalls catheter in place. EXTREMITIES: No significant pitting edema. NOTABLE STUDIES: Alpha-1 antitrypsin, antinuclear antibodies, anti microsomal antibodies, antimitoch ondrial antibodies, and serum protein electrophoresis testing is currently pending. White blood cell count 8.8, hemoglobin 16.3, platelets 175. Sodium 134, potassium 3.3, chloride 103, bicarb 23, BUN 11, creatinine 0.4, glucose of 78. C difficile PCR positive. Blood cultures no growth at 36 hours. Peritoneal fluid showed no growth at [address] scan abdomen and pelvis in 06/2018, showed early hepatic cirrhosis with bilobar masses, the largest on the right measuring 6 x 4 cm, slightly increase d in size since November 2017. Imaging characteristics on prior exam compatible with hemangioma. If the dominant mass on the right is contributing to the patient's pain, would recommend consultation with I nterventional Radiology for embolization. Small volume ascites. DISCHARGE MEDICATIONS: 1. Lasix 40 mg daily. 2. Spironolactone 100 mg daily. 3. Vancomycin 125 mg 4 times a day for 11 additional days. 4. Levaquin 500 mg daily for 2 additional days. DISCHARGE INSTRUCTIONS: Followup visits with her primary doctor, Dr. Roman, in 1-2 weeks' time is r ecommended specifically for electrolyte check with the current Lasix and spironolactone. She has an upcoming consultation with Hepatology and with the new onset seizure, a followup visit with Neurology is also recommended. TIME SPENT: 45 minutes of time dedicated to discharge efforts. /[id number]/MODL
--- NOTE | 2018-07-10 22:24 | GCON ---
NEUROLOGY CONSULTATION REFERRING PHYSICIAN: Wade Hawk MD REASON FOR CONSULTATION: The patient is a 52-year-old woman, whom I am asked to see in neurologic co nsultation for an episode of witnessed seizure activity. HISTORY OF PRESENT ILLNESS: Dr. Hawk did see this patient have this event and witnessed a generali zed seizure with a brief period of apnea and uncertainty about whether there was any loss of pulse, b ut probably cannot say for sure. He briefly initiated some chest compressions, but she quickly devel oped a pulse, and did not have any prolonged episodes of hypotension or hypoxia. She has a history o f ascites with hemochromatosis and has cirrhotic liver. She denies any history of prior seizure diso rder. She says she deals with some chronic tremulousness for many years. The fatty liver with eleva mike ferritin was discovered just a few months ago. She has not had any history of recent alcohol abu se. Peritonitis was found in the workup, and had a paracentesis. She received antibiotic therapy, b ut is now off that. She feels back to her baseline currently and is hoping to be discharged. FAMILY HISTORY: Negative for seizure, but there is a history of myocardial infarction. CURRENT MEDICATION: Vancomycin; thiamine; spironolactone; potassium; lorazepam as needed; Levaquin, but that is going to be stopped; DuoNeb; and Lasix. ALLERGIES: Penicillin, sulfa, Monistat. PHYSICAL EXAMINATION: She is well developed, in no acute distress. She is alert and attentive, with clear and fluent speech other than her mild language impairment. Pupils 3 mm and reactive. Extraoc ular movements are intact. Normal facial sensation and strength. Motor exam reveals bilateral postu ral tremulousness in the upper extremities, present on [id number] as well. There is not myoclonu s. She can stand without difficulty and maintain her balance. Reflexes are diminished in the upper and lower extremities. DIAGNOSTIC DATA: The patient had MRI showing some nonspecific white matter change. No explanation t o explain seizure. The chemistry shows a sodium of 134, potassium 3.3, BUN 11, creatinine 0.4. The AST yesterday was 21 7, ALT of 85. Unremarkable CBC currently. IMPRESSION: The patient had a witnessed generalized seizure of uncertain cause, but likely related t o her recent infection and liver disease. We do not see structural lesions on the MRI. Probability of seizure recurrence is uncertain at this stage, but I do not feel she should be started on anticonv ulsant therapy. If she has recurrent episodes, she can follow up as an outpatient. Total unit time of 55 minutes. /[id number]/MODL
== END 2018-07-10 16:35 | disposition home or self-care (01) | DRG 372 ==
LOC: UNDOADMIN 14:06 → F3E 15:06
PROVIDERS: ADMIT Internal Medicine; ATTEND Internal Medicine
PROC: 0W9G3ZZ Drainage of Peritoneal Cavity, Percutaneous Approach (ICD-10-PCS; principal; 2018-07-08)
DX: K65.2 Spontaneous bacterial peritonitis (principal); G40.909 Epilepsy, unspecified, not intractable, without status epilepticus; A04.72 Enterocolitis due to Clostridium difficile, not specified as recurrent; K74.60 Unspecified cirrhosis of liver; R18.8 Other ascites; E87.1 Hypo-osmolality and hyponatremia; E87.6 Hypokalemia; E03.9 Hypothyroidism, unspecified; Z72.0 Tobacco use
CPT/HCPCS: 82390-90; 86255-90; 86376-90; 96374; A9585; J1956; Q9967

== ENCOUNTER → 2018-07-29 | Outpatient (CLI) | payer OTHER | LOC: FIMAGING 10:21 | PROVIDERS: ATTEND Internal Medicine | PROC: 0W9F3ZZ Drainage of Abdominal Wall, Percutaneous Approach (ICD-10-PCS; principal; 2018-07-29) | DX: R18.8 Other ascites (principal) ==

== ENCOUNTER → 2018-07-30 | Outpatient (CLI) | payer OTHER | LOC: FIMAGING 08:20 | PROVIDERS: ATTEND Internal Medicine | DX: R74.8 Abnormal levels of other serum enzymes (principal); K76.9 Liver disease, unspecified ==

== ENCOUNTER → 2018-12-14 | Outpatient (CLI) | payer OTHER | LOC: FIMAGING 09:26 ==

== ENCOUNTER → 2019-01-09 | Outpatient (CLI) | payer OTHER | LOC: CIMAGING 08:15 ==